=== PATIENT | male | born 1940 ===

== ENCOUNTER 2020-07-02 10:16 | Inpatient (IN) ==
[2020-07-02] MEDS ORDERED: NS 0.9% 1000 ml BAG 1,000 ML IV ONE (10:38)
[2020-07-02 10:58] LABS: Hematocrit 40 % (42-52); Hemoglobin 13.6 g/dL (14.0-18.0); Mean Corpuscular HGB Conc 34 g/dL (31-36); Mean Corpuscular Hemoglobin 33 pg (27-31); Mean Corpuscular Volume 96 fL (80-94); Mean Platelet Volume 9.9 fL (7.4-10.4); Platelet Count 258 10^3/uL (150-450); Red Blood Count 4.15 10^6 /uL (4.18-5.48); Red Cell Distribution Width 15 % (10-15); White Blood Count 11.9 10^3/uL (3.5-10.8)
[2020-07-02 11:11] LABS: Activated Partial Thrombo Time 28.7 seconds (26.0-38.0); INR 1.29 (0.82-1.09)
[2020-07-02 11:24] LABS: ABS Lymphocytes 0.8 10^3/ul (1.0-4.8); ABS Monocytes 1.7 10^3/ul (0-0.8); ABS Neutrophils 9.3 10^3/ul (1.5-7.7); Lymphocyte % 6.5 %; Troponin I 0.04 ng/mL (<0.03)
[2020-07-02 11:32] LABS: ALT 19 U/L (7-52); AST 17 U/L (13-39); Albumin 4.2 g/dL (3.2-5.2); Albumin/Globulin Ratio 1.3 (1-3); Alkaline Phosphatase 41 U/L (34-104); Anion Gap 10 mmol/L (2-11); BUN/Creatinine Ratio 23.8 (8-20); Blood Urea Nitrogen 15 mg/dL (6-24); CO2 Carbon Dioxide 23 mmol/L (22-32); Calcium 9.4 mg/dL (8.6-10.3); Chloride 88 mmol/L (101-111); EGFR African American 148.3 (>60); EGFR Non-African American 122.5 (>60); Globulin 3.3 g/dL (2-4); Glucose 127 mg/dL (70-100); Sodium 121 mmol/L (135-145); Total Protein 7.5 g/dL (6.4-8.9)
[2020-07-02] MEDS ORDERED: Vancomycin 1,500 MG in NS 0.9% 250 ml 250 ML IVPB ONE (11:39)
[2020-07-02 12:58] LABS: Urine Potassium Concentration 39.5 mmol/L
[2020-07-02 13:00] LABS: Urine Appearance Cloudy; Urine Bilirubin Negative (Negative); Urine Blood Negative (Negative); Urine Color Yellow; Urine Glucose Negative (Negative); Urine Ketones 1+ (Negative); Urine Nitrite Negative (Negative); Urine Protein 1+(30 mg/dL) (Negative); Urine Specific Gravity 1.015 (1.010-1.030); Urine Urobilinogen Negative (Negative)
[2020-07-02 13:02] LABS: Urine Bacteria Absent (Absent); Urine Red Blood Cell 1+(3-5/hpf) (Absent); Urine White Blood Cell Trace(0-5/hpf) (Absent)
[2020-07-02] MEDS ORDERED: Polyethylene Glycol 3350 17 GM PACKET PO PRN (13:02)
[2020-07-02] MEDS: Labetalol IV 5 MG/ML 20 ml VIAL IV PUSH PRN (13:56)
[2020-07-02] MEDS: cefTRIAXone 2 GM ADDV.VIAL 2 GM in NS 0.9% 100 ml BAG 100 ML IV SCH (14:27)
[2020-07-02] MEDS ORDERED: Clindamycin 600 MG/D5W BAG 600 MG/50 ML BAG IV SCH (14:30)
[2020-07-02 16:05] LABS: CO2 Carbon Dioxide 18 mmol/L (22-32); Calcium 8.2 mg/dL (8.6-10.3); Chloride 87 mmol/L (101-111)
[2020-07-02 16:11] LABS: BUN/Creatinine Ratio 23.2 (8-20); Blood Urea Nitrogen 13 mg/dL (6-24); EGFR African American 169.9 (>60); EGFR Non-African American 140.4 (>60); Glucose 132 mg/dL (70-100)
[2020-07-02 16:12] LABS: Sodium 119 mmol/L (135-145)
[2020-07-02 16:13] LABS: Anion Gap 14 mmol/L (2-11)
[2020-07-02] MEDS: Acetaminophen IV 1 GM/100ML 100 ML IVPB PRN (17:29)
[2020-07-02] MEDS: Heparin 5000 UNITS/ML 1 mL VIAL SUBCUT SCH ×2 (17:29→22:27)
[2020-07-02] MEDS ORDERED: hydrALAZINE 20 mg/ml 1 ML Vial IV IV SLOW PU ONE (17:50)
[2020-07-02] MEDS: Senna TAB 8.6 mg TAB PO SCH (22:27)
[2020-07-03] MEDS: Acetaminophen IV 1 GM/100ML 100 ML IVPB PRN (02:24)
[2020-07-03 02:26] LABS: Urine Appearance Clear; Urine Bilirubin Negative (Negative); Urine Blood 1+ (Negative); Urine Color Yellow; Urine Glucose Negative (Negative); Urine Ketones 1+ (Negative); Urine Nitrite Negative (Negative); Urine Protein 1+(30 mg/dL) (Negative); Urine Specific Gravity 1.016 (1.010-1.030); Urine Urobilinogen Negative (Negative)
[2020-07-03 02:32] LABS: Urine Bacteria Absent (Absent); Urine Red Blood Cell 2+(6-10/hpf) (Absent); Urine White Blood Cell Trace(0-5/hpf) (Absent)
[2020-07-03] MEDS: cefTRIAXone 2 GM ADDV.VIAL 2 GM in NS 0.9% 100 ml BAG 100 ML IV SCH ×2 (02:43→14:00)
[2020-07-03 04:25] LABS: ABS Lymphocytes 0.6 10^3/ul (1.0-4.8); ABS Monocytes 1.5 10^3/ul (0-0.8); ABS Neutrophils 7.4 10^3/ul (1.5-7.7); Hematocrit 36 % (42-52); Hemoglobin 12.5 g/dL (14.0-18.0); Lymphocyte % 6.6 %; Mean Corpuscular HGB Conc 35 g/dL (31-36); Mean Corpuscular Hemoglobin 33 pg (27-31); Mean Corpuscular Volume 94 fL (80-94); Mean Platelet Volume 10.2 fL (7.4-10.4); Platelet Count 215 10^3/uL (150-450); Red Cell Distribution Width 14 % (10-15); White Blood Count 9.5 10^3/uL (3.5-10.8)
[2020-07-03 04:44] LABS: BUN/Creatinine Ratio 23.5 (8-20); Calcium 8.1 mg/dL (8.6-10.3); EGFR African American 189.2 (>60); EGFR Non-African American 156.4 (>60); Magnesium 1.3 mg/dL (1.9-2.7); Phosphorus 2.5 mg/dL (2.5-5.0); Potassium 3.8 mmol/L (3.5-5.0)
[2020-07-03] MEDS ORDERED: Magnesium Sulf 4 GM/100 ML IV 4,000 MG/100 ML BAG IVPB ONE (05:10)
[2020-07-03] MEDS: Heparin 5000 UNITS/ML 1 mL VIAL SUBCUT SCH ×3 (06:09→21:34)
[2020-07-03] MEDS ORDERED: Vancomycin per Pharmacy 1 EA NOTE FOLLOW UP PRN (08:09)
[2020-07-03] MEDS: Vancomycin 1,250 MG in NS 0.9% 250 ml 250 ML IVPB SCH ×2 (09:20→21:20)
[2020-07-03 13:50] LABS: Calcium 8.1 mg/dL (8.6-10.3); EGFR African American 193.6 (>60); Magnesium 2.2 mg/dL (1.9-2.7); Potassium 3.8 mmol/L (3.5-5.0)
[2020-07-03] MEDS: Senna TAB 8.6 mg TAB PO SCH (21:33)
[2020-07-04] MEDS: cefTRIAXone 2 GM ADDV.VIAL 2 GM in NS 0.9% 100 ml BAG 100 ML IV SCH (02:40)
[2020-07-04] MEDS: Labetalol IV 5 MG/ML 20 ml VIAL IV PUSH PRN (03:41)
[2020-07-04 06:00] LABS: ABS Lymphocytes 0.6 10^3/ul (1.0-4.8); ABS Monocytes 0.8 10^3/ul (0-0.8); ABS Neutrophils 4.9 10^3/ul (1.5-7.7); Hematocrit 37 % (42-52); Hemoglobin 12.5 g/dL (14.0-18.0); Lymphocyte % 9.3 %; Mean Corpuscular HGB Conc 34 g/dL (31-36); Mean Corpuscular Hemoglobin 32 pg (27-31); Mean Corpuscular Volume 96 fL (80-94); Mean Platelet Volume 9.8 fL (7.4-10.4); Nucleated Red Blood Cells % 0.1; Platelet Count 206 10^3/uL (150-450); Red Blood Count 3.87 10^6 /uL (4.18-5.48); Red Cell Distribution Width 15 % (10-15); White Blood Count 6.2 10^3/uL (3.5-10.8)
[2020-07-04] MEDS: Heparin 5000 UNITS/ML 1 mL VIAL SUBCUT SCH (06:02)
[2020-07-04 06:08] LABS: Magnesium 1.8 mg/dL (1.9-2.7)
[2020-07-04] MEDS: Vancomycin 1,250 MG in NS 0.9% 250 ml 250 ML IVPB SCH (08:50)
[2020-07-04 12:07] VITALS: BP 159/61
[2020-07-05] MEDS ORDERED: Vancomycin Trough Check NOTE FOLLOW UP ONE (08:30)
== END 2020-07-04 04:12 | disposition home or self-care (01) | DRG 641 ==
LOC: ED 10:16 → ICU 13:21 → SSU 07-03 18:47
PROVIDERS: ADMIT Internal Medicine; ATTEND Student in an Organized Health Care Education/Training Program